=== PATIENT | female | born 1950 | race African-American/Black ===

== ENCOUNTER 2022-06-21 12:53 | Emergency (ER) | payer OTHER ==
[~2022-06-21] VITALS: Ht 157.5 cm; Wt 59.9 kg
--- NOTE | 2022-06-21 13:10 | NUR ---
[id number] HOME C/O BODY ACHES, COUGH AND CONGESTION X 2 DAYS. PLACED ON BED, AAOX4, BREATHING UNLABORED SATURATING AT 95%RA.
--- NOTE | 2022-06-21 13:33 | NUR ---
SWAB FOR COVID19 AND RAPID INFLUENZA SENT TO LAB.
[2022-06-21] MEDS ORDERED: IBUPROFEN 400 MG TABLET ONE (15:51)
[2022-06-21] MEDS ORDERED: IBUPROFEN 400 MG TABLET PO ONE (16:00)
[2022-06-21] MEDS ORDERED: GUAI600T53 PO (16:07)
[2022-06-21] MEDS ORDERED: BENZ-13 PO (16:07)
--- NOTE | 2022-06-21 18:34 | NUR ---
Patient discharged to home in stable condition. Written and verbal after care instructions given. Patient verbalizes understanding of instruction.
[2022-06-21 19:49] VITALS: BP 145/80
== END 2022-06-21 18:34 | disposition home or self-care (01) ==
LOC: ER 12:55
DX: U07.1 COVID-19 (principal); I10 Essential (primary) hypertension; E11.9 Type 2 diabetes mellitus without complications; Z94.0 Kidney transplant status; Z94.1 Heart transplant status
CPT/HCPCS: 99284; 71045; 87426; 87804; C9803